=== PATIENT | female | born 1970 | race Two or more races ===

== ENCOUNTER → 2018-01-18 | Outpatient (CLI) | payer BC | END | disposition home or self-care (01) | LOC: KCIC MRI 09:53 | DX: Z12.31 Encounter for screening mammogram for malignant neoplasm of breast (principal); H53.9 Unspecified visual disturbance; M22.41 Chondromalacia patellae, right knee; I10 Essential (primary) hypertension; E78.5 Hyperlipidemia, unspecified; Z86.73 Personal history of transient ischemic attack (TIA), and cerebral infarction without residual deficits | CPT/HCPCS: 70551; 73721; 77067 ==